=== PATIENT | female | born 1970 | race Caucasian/White ===

== ENCOUNTER 2025-03-28 13:56 | Outpatient (AMB) | payer MEDICAID, SELFPAY ==
[2025-03-28 14:24] VITALS: BP 156/86; PULSE 80; RESP 17; TEMP 36.9; O2SAT 94; BMI 23.0
--- NOTE | 2025-03-28 14:24 | PD.ORTHCLVIS ---
Vital signs 03/28/25 14:24 Height 1.65 m Height Method Stated Weight 62.851 kg Weight Measurement Method Standing Scale BMI 23.0 BP 156/86 H Blood Pressure Source Automatic Cuff Blood Pressure Location Right Upper Arm Position Sitting Respiration 17 Pulse 80 Pulse Source Monitor Temp 98.4 F Temp Source Temporal Artery Scan Pulse Oximetry (%) 94 L Oxygen Delivery Method Room Air Med/Allergies Allergies & Medications Allergies Penicillins Allergy (Verified 03/28/25 14:25) unknown Medication Reconciliation cetirizine 10 mg tablet (All Day Allergy (cetirizine)) 10 mg PO QDAY PRN 03/28/25 [History Confirmed 03/28/25] duloxetine 20 mg capsule,delayed release (Cymbalta) 20 mg PO BID 03/28/25 [History Confirmed 03/28/25] ibuprofen 800 mg tablet 800 mg PO TID 03/28/25 [History Confirmed 03/28/25] meloxicam 7.5 mg tablet 7.5 mg PO QDAY #45 tabs 03/28/25 [Rx] Exam Exam Patient is in no acute distress and is cooperative with the examination today. Breathing is nonlabored. In no respiratory distress. Bilateral extremities were evaluated and demonstrates sensation intact to light touch. Palpable pedal pulses are present. No significant edema is present. Bilateral hips were examined. The patient has no pain with log roll of the hips. Internal rotation to 30 degrees and external rotation to 30 degrees is painless. Negative FADIR. The left knee was examined. The left knee is in neutral alignment. Range of motion from 0-120 degrees. Knee is stable to varus and valgus as well as AP translation with <5mm. Patient has a negative McMurrays. There is no pain with patellofemoral compression and no crepitus noted. The knee is nontender to palpation diffusely. The right knee was also examined. The right knee is in neutral alignment. Range of motion from 0-120 degrees. Knee is stable to varus and valgus as well as AP translation with <5mm. Patient has a negative McMurrays. There is no pain with patellofemoral compression and no crepitus noted. The knee is Tender to palpation medially An MRI demonstrates an absent ACL as well as Medial and lateral joint space narrowing Assessment and Plan Problem List (1) Degenerative arthritis of knee, bilateral: Status: Acute Plan: Patient is a 54-year-old female with bilateral knee pain and bilateral knee arthritis. I would like to get weightbearing x-rays. We will likely start her with anti-inflammatories which she is prescribed. We can discuss a cortisone injection at next visit We will see her back after her knee and hip films Office Procedures GNS Level of Care Nursing/Assessment Patient Status: Initial/New Patient Nursing Assessment/Reassesment: Medication Reconciliation and Update PMH in EMR Coordination of Care: Complex Care and Chronic Disease 1-5, Consent,records obtained, informed consent, Education Simp Pt/Fam, 1 Ins Authorization, Results/Orders obtained and Staff clarify orders New Patient Charge New Patient Point Assignment: [id number] New Patient Point Charge: MEDICAL SPECIALIST Level 3 ([id number]) MA Intake Visit Data Collection New Patient or Established: Established Patient (seen at [facility] within 3 years) Reason for Visit:: RT KNEE PAIN Seen by Clinical Staff ONLY (RN/MA): No Wound Care Specialist Required: No PCP or OBGYN visit in last 3 months: Yes Hx Now: No Do You Feel Safe at Home: Yes Authorities Contacted: N/A Questionairres Past Medical History Past Medical History Have you ever been diagnosed with any of the following: Cardiology Problems Congestive Heart Failure: No Respiratory Problems Chronic Obstructive Pulmonary Disease (COPD): No Smoking: No Smoking Cessation Counseling: No Smoking Exposure: No Tobacco Use: No Genital/Urinary Problems Renal Disease: No Endocrine Problems Diabetes Mellitus Type 1: No Diabetes Mellitus Type 2: No Subjective Visit Visit for: new patient and knee (RT KNEE PAIN ) Immunization / Flu Flu Vaccine in the Last 12 Months: Yes Flu Vaccine Exclusion Criteria: Already Received History of Present Illness Chief complaint: Bilateral knee pain Regla is a pleasant 54-year-old female with bilateral knee pain worse on the right. This has been ongoing for several years. The pain is worse on the right. She has never had any injections or is taking any anti-inflammatories. Personal History Red flag PMH: none Pain Pain level (0-10): 8 Pain duration: 2 YEARS Pain location: anterior and posterior Pain quality: aching Pain timing: night and increases with activity Associated signs & symptoms: weakness and stiffness Ambulatory data Ambulatory device: none Walking distance (minutes): 0 Treatments Number of previous injections: 0 Number of Physical Therapy sessions: 2 Improvement with PT: No Improvement with NSAIDS: n/a Review of Systems Review of Systems: All systems negative unless otherwise noted in HPI.
--- NOTE | 2025-03-28 14:26 | XR_ITS ---
Examination: Bilateral hips, AP pelvis, 5 views Technique: AP, lateral views both hips, AP pelvis, 5 views Exam date and time: March 28, 2025 1436 hours INDICATIONS: Bilateral hip pain months FINDINGS: Moderate osteopenia Mild to moderate narrowing hip joints No right or left hip fracture or dislocation No avascular necrosis IMPRESSION: Mild to moderate narrowing hip joints
--- NOTE | 2025-03-28 14:26 | XR_ITS ---
Examination: Bilateral knees 2 views Right lateral knee left lateral knee 2 views Bilateral axial knees single view TECHNIQUE: Bilateral AP knees standing single view, bilateral PA knees standing single view flexion Standing right lateral knee left lateral knee 2 views Bilateral axial knees single view total 5 views Date and time: March 28, 2025 1436 hours INDICATIONS: Bilateral knee pain months. FINDINGS: Moderate to advanced narrowing lateral joint space right knee Mild to moderate narrowing medial joint space right knee Mild to moderate osteoarthritis right patellofemoral joint Mild to moderate narrowing medial joint space left knee Mild to moderate osteoarthritis left patellofemoral joint IMPRESSION: Osteoarthritis as above
== END 2025-03-28 14:29 | disposition home or self-care (01) ==
LOC: HODSRG 13:56
PROVIDERS: PCP Nurse Practitioner Family; Referring Provider Nurse Practitioner Family; Supervising Provider Orthopaedic Surgery Adult Reconstructive Orthopaedic Surgery; Visit Provider Orthopaedic Surgery Adult Reconstructive Orthopaedic Surgery
DX: M17.0 Bilateral primary osteoarthritis of knee (principal)
CPT/HCPCS: 73522; 73564; 99203; G0463

== ENCOUNTER 2025-06-09 14:06 | Outpatient (AMB) | payer MEDICAID, SELFPAY ==
--- NOTE | 2025-06-09 14:41 | PD.ORTHCLVIS ---
Vital signs 06/09/25 14:42 Height 1.65 m Height Method Stated Weight 61.462 kg Weight Measurement Method Standing Scale BMI 22.6 BP 170/112 H Blood Pressure Source Automatic Cuff Blood Pressure Location Left Upper Arm Position Sitting Respiration 18 Pulse 65 Pulse Source Monitor Temp 96.9 F Temp Source Temporal Artery Scan Pulse Oximetry (%) 97 Oxygen Delivery Method Room Air Med/Allergies Allergies & Medications Allergies Penicillins Allergy (Verified 06/09/25 14:42) unknown Medication Reconciliation cetirizine 10 mg tablet (All Day Allergy (cetirizine)) 10 mg PO QDAY PRN 03/28/25 [History Confirmed 06/09/25] duloxetine 20 mg capsule,delayed release (Cymbalta) 20 mg PO BID 03/28/25 [History Confirmed 06/09/25] ibuprofen 800 mg tablet 800 mg PO TID 03/28/25 [History Confirmed 06/09/25] meloxicam 7.5 mg tablet 7.5 mg PO QDAY #45 tabs 03/28/25 [Rx Confirmed 06/09/25] Exam Exam Patient is in no acute distress and is cooperative with the examination today. Breathing is nonlabored. In no respiratory distress. Bilateral extremities were evaluated and demonstrates sensation intact to light touch. Palpable pedal pulses are present. No significant edema is present. Bilateral hips were examined. The patient has no pain with log roll of the hips. Internal rotation to 30 degrees and external rotation to 30 degrees is painless. Negative FADIR. The left knee was examined. The left knee is in neutral alignment. Range of motion from 0-120 degrees. Knee is stable to varus and valgus as well as AP translation with <5mm. Patient has a negative McMurrays. There is no pain with patellofemoral compression and no crepitus noted. The knee is nontender to palpation diffusely. The right knee was also examined. The right knee is in neutral alignment. Range of motion from 0-120 degrees. Knee is stable to varus and valgus as well as AP translation with <5mm. Patient has a negative McMurrays. There is no pain with patellofemoral compression and no crepitus noted. The knee is Tender to palpation medially An MRI demonstrates an absent ACL as well as Medial and lateral joint space narrowing Assessment and Plan Problem List (1) Degenerative arthritis of knee, bilateral: Status: Acute Plan: Patient is a 54-year-old female with bilateral knee pain and bilateral knee arthritis. Her knee and hip x-rays look great. There is minimal joint space narrowing in both the knees and hips. We recommend continued conservative treatment. Her back is bothering her. On further history, she does have numbness and tingling going down the legs. She has a lot of back issues as well. She appears to have symptoms of spinal stenosis and we will thus order an MRI for this We will workup her spine as she is having significant pain. Office Procedures GNS Level of Care Nursing/Assessment Patient Status: Established Patient Nursing Assessment/Reassesment: Medication Reconciliation, Update PMH in EMR and Vital Signs Coordination of Care: Complex Care and Chronic Disease 1-5, Education Complex Pt/Fam, Consent,records obtained, informed consent, Results/Orders obtained and Staff clarify orders Established Patient Charge Established Patient Point Assignment: 95 Established Patient Point Charge: Level 3 (80-115) MA Intake Visit Data Collection New Patient or Established: Established Patient (seen at [facility] within 3 years) Reason for Visit:: RT KNEE PAIN Seen by Clinical Staff ONLY (RN/MA): No Naturopathic Physician Required: No PCP or OBGYN visit in last 3 months: Yes Hx Now: No Do You Feel Safe at Home: Yes Authorities Contacted: N/A Questionairres Past Medical History Past Medical History Have you ever been diagnosed with any of the following: Cardiology Problems Congestive Heart Failure: No Respiratory Problems Chronic Obstructive Pulmonary Disease (COPD): No Smoking: No Smoking Cessation Counseling: No Smoking Exposure: No Tobacco Use: No Genital/Urinary Problems Renal Disease: No Endocrine Problems Diabetes Mellitus Type 1: No Diabetes Mellitus Type 2: No Subjective Visit Visit for: follow up visit and knee (RT KNEE PAIN ) Immunization / Flu Flu Vaccine in the Last 12 Months: Yes Flu Vaccine Exclusion Criteria: Already Received History of Present Illness Chief complaint: Bilateral knee pain Regla is a pleasant 54-year-old female with bilateral knee pain worse on the right. This has been ongoing for several years. The pain is worse on the right. She has never had any injections. She is actually in her back. She is seeing a chiropractor. Reports the hip and knee pain has improved Personal History Red flag PMH: none Pain Pain level (0-10): 8 Pain duration: 2 YEARS Pain location: anterior and posterior Pain quality: aching Pain timing: night and increases with activity Associated signs & symptoms: weakness and stiffness Ambulatory data Ambulatory device: none Walking distance (minutes): 0 Treatments Number of previous injections: 0 Number of Physical Therapy sessions: 2 Improvement with PT: No Improvement with NSAIDS: n/a Review of Systems Review of Systems: All systems negative unless otherwise noted in HPI.
[2025-06-09 14:42] VITALS: BP 170/112; PULSE 65; RESP 18; TEMP 36.1; O2SAT 97; BMI 22.6
== END 2025-06-09 15:06 | disposition home or self-care (01) ==
LOC: HODSRG 14:06
PROVIDERS: PCP Nurse Practitioner Family; Referring Provider Nurse Practitioner Family; Supervising Provider Orthopaedic Surgery Adult Reconstructive Orthopaedic Surgery; Visit Provider Orthopaedic Surgery Adult Reconstructive Orthopaedic Surgery
DX: M17.0 Bilateral primary osteoarthritis of knee (principal); M25.562 Pain in left knee; M25.561 Pain in right knee; R20.0 Anesthesia of skin; R20.2 Paresthesia of skin
CPT/HCPCS: 99213; G0463

== ENCOUNTER → 2025-07-28 | Outpatient (CLI) | payer MEDICAID, SELFPAY ==
--- NOTE | 2025-07-28 12:00 | XR_ITS ---
Examination: MRI lumbar spine without contrast Date and time of exam: July 28, 2025, 1224 hours INDICATIONS: Lower back pain radiating to legs beginning 9 months ago. Technique: Multiple MRI axial and sagittal sections lumbar spine. Sagittal T2-weighted images, TR 3500, TE 118 T1 weighted transverse sections, TR 688 T8.5, T2-weighted sagittal sections T1 weighted sagittal sections TR 621, TE 30 T2 axial sections, TR 4, 190, TE 84. Findings: Adequate alignment lumbar vertebral bodies Moderate to advanced disc narrowing L2-L3 with reactive bony endplate change Diffuse lumbar disc desiccation No lumbar fracture. No spondylolisthesis L5-S1 5 mm left paracentral disc bulge contiguous with the left S1 nerve root L4-L5 4 mm central lumbar disc bulge More cephalad levels unremarkable IMPRESSION: Moderate to advanced degenerative disc disease L2-L3 L5-S1 5 mm left paracentral disc bulge contiguous with the left S1 nerve root L4-L5 4 mm central lumbar disc bulge
== END | disposition home or self-care (01) ==
LOC: SMRI 11:58
PROVIDERS: PCP Nurse Practitioner; Referring Provider Orthopaedic Surgery Adult Reconstructive Orthopaedic Surgery; Visit Provider Orthopaedic Surgery Adult Reconstructive Orthopaedic Surgery
DX: M51.360 Other intervertebral disc degeneration, lumbar region with discogenic back pain only (principal); M51.370 Other intervertebral disc degeneration, lumbosacral region with discogenic back pain only
CPT/HCPCS: 72148